=== PATIENT | female | born 2000 | race Caucasian/White ===

== ENCOUNTER 2022-06-08 19:51 | Emergency (ER) | payer BC, OTHER ==
[~2022-06-08] VITALS: Ht 154.9 cm; Wt 74.8 kg
[2022-06-08 20:15] VITALS: BP_SYST 126
--- NOTE | 2022-06-08 20:15 | NUR ---
Patient to ER bed 02 to gown for evaluation. Side rails up. Report given to EMILEE DOTSON
--- NOTE | 2022-06-08 20:20 | NUR ---
PATIENT BROUGHT IN BY BOYFRIEND COMPLAINING OF RLQ ABDOMINAL DULL NON RADIATING PAIN X 2 DAYS WITH NAUSEA. DENIES DIARRHEA , CONSTIPATION OR VOMITING. AFEBRILE. PAIN 5/10
[2022-06-08] MEDS ORDERED: IBUPROFEN 600 MG TABLET PO ONE (20:30)
[2022-06-08] MEDS ORDERED: ACETAMINOPHEN 500 MG TABLET PO ONE (20:30)
[2022-06-08] MEDS ORDERED: ONDANSETRON 4 MG ODT TAB PO ONE (20:30)
[2022-06-08 20:50] LABS: BASOPHILS % (AUTO) 0.8 % (0.0-2.0); EOSINOPHILS # (AUTO) 0.2 K/uL (0.0-0.4); EOSINOPHILS % (AUTO) 2.7 % (0.0-4.0); HEMATOCRIT 39.2 % (36-48); HEMOGLOBIN 12.7 g/dL (12.0-16.0); LYMPHOCYTES # (AUTO) 2.5 K/uL (1.0-5.5); LYMPHOCYTES % (AUTO) 44.3 % (20.5-51.5); MEAN CORPUSCULAR HEMOGLOBIN 26 pg (27-31); MEAN CORPUSCULAR HGB CONC 32 % (32-36); MEAN CORPUSCULAR VOLUME 81 fL (79.0-98.0); MONOCYTES # (AUTO) 0.4 K/uL (0.0-1.0); NEUTROPHILS # (AUTO) 2.6 K/uL (1.8-7.7); NEUTROPHILS % (AUTO) 45.2 % (40.0-70.0); PLATELET COUNT (AUTO) 189 K/uL (130-430); RED BLOOD CELL COUNT(AUTO) 4.84 MIL/uL (4.2-6.2); RED CELL DISTRIBUTION WIDTH 13.8 % (9.0-15.0); WHITE BLOOD COUNT (AUTO) 5.7 K/uL (4.5-11.0)
[2022-06-08 21:01] LABS: ALANINE AMINOTRANSFERASE 35 U/L (12-78); ALBUMIN 3.4 g/dL (3.4-4.8); ANION GAP 6 (5-15); ASPARTATE AMINOTRANSFERASE 25 U/L (10-37); CALCIUM 8.6 mg/dL (8.4-11.0); CHLORIDE 105 mmol/L (98-107); CREATININE 0.82 mg/dL (0.55-1.30); GFR AFRICAN AMERICAN 115 mL/min (>90); GLUCOSE 101 mg/dL (70-99); LIPASE 64 U/L (73-393); TOTAL BILIRUBIN 0.2 mg/dL (0.0-1.0); UREA NITROGEN, BLOOD 13 mg/dL (8-21)
[2022-06-08 21:17] LABS: C-REACTIVE PROTEIN QUANT < 0.2 mg/dL (0-0.5)
[2022-06-08] MEDS ORDERED: ONDA-8 TL (22:53)
--- NOTE | 2022-06-08 22:56 | NUR ---
urine walked down to lab
[2022-06-08 22:57] VITALS: BP_SYST 125
[2022-06-08 23:44] LABS: BILIRUBIN,URINE NEGATIVE (NEGATIVE); BLOOD, URINE NEGATIVE (NEGATIVE); COLOR,URINE YELLOW (YELLOW); GLUCOSE,URINE NEGATIVE (NEGATIVE); KETONES,URINE NEGATIVE (NEGATIVE); LEUKOCYTE ESTERASE ,URINE TRACE (NEGATIVE); NITRITE, URINE NEGATIVE (NEGATIVE); PROTEIN URINE NEGATIVE (NEGATIVE); UROBILINOGEN,URINE 0.2 (0.2-1.0)
[2022-06-08 23:55] LABS: BACTERIA,URINE FEW /HPF (None Seen); CLARITY/URINE HAZY (CLEAR); RBC,URINE 0-3 /HPF (0-3)
== END 2022-06-08 23:09 | disposition home or self-care (01) ==
LOC: SED 19:51
DX: R10.31 Right lower quadrant pain (principal); R11.0 Nausea; Z79.899 Other long term (current) drug therapy
CPT/HCPCS: 99284; 76856; 80053; 81000; 83690; 85025; 86140; 87086; 36415; 81025; Q0162

== ENCOUNTER 2022-06-10 23:12 | Emergency (ER) | payer BC ==
[~2022-06-10] VITALS: Ht 154.9 cm; Wt 77.1 kg
[~2022-06-10 23:12] MED LIST: ONDA-8 TL
--- NOTE | 2022-06-10 23:15 | NUR ---
Triaged and placed patient to ER bed 3 for evaluation. Report given to Jaime HEBERT for continuity of care. Bed placed in lowest position with side rails up. Instructed to notify ED staff for any changes in condition or worsening of symptoms while waiting to be seen by a provider. Patient verbalized understanding.
[2022-06-10 23:16] VITALS: BP_SYST 120
--- NOTE | 2022-06-10 23:44 | NUR ---
PREGNACY URINE NEGATIVE
[2022-06-10] MEDS ORDERED: ONDANSETRON HCL 4 MG/2 ML VIAL IVP ONE (23:45)
[2022-06-10] MEDS ORDERED: NACL 0.9% 1,000 ML IV ONE (23:45)
[2022-06-10] MEDS ORDERED: KETOROLAC TROMETHAMINE 30 MG VIAL IVP ONE (23:45)
[2022-06-10 23:51] LABS: BILIRUBIN,URINE NEGATIVE (NEGATIVE); BLOOD, URINE NEGATIVE (NEGATIVE); CLARITY/URINE SL CLOUDY (CLEAR); COLOR,URINE YELLOW (YELLOW); GLUCOSE,URINE NEGATIVE (NEGATIVE); KETONES,URINE NEGATIVE (NEGATIVE); LEUKOCYTE ESTERASE ,URINE NEGATIVE (NEGATIVE); NITRITE, URINE NEGATIVE (NEGATIVE); PH,URINE 5.5 (5.0-8.0); PROTEIN URINE NEGATIVE (NEGATIVE); UROBILINOGEN,URINE 0.2 (0.2-1.0)
[2022-06-11 00:44] LABS: BASOPHILS % (AUTO) 0.7 % (0.0-2.0); EOSINOPHILS # (AUTO) 0.1 K/uL (0.0-0.4); EOSINOPHILS % (AUTO) 1.9 % (0.0-4.0); HEMATOCRIT 38.9 % (36-48); HEMOGLOBIN 12.7 g/dL (12.0-16.0); LYMPHOCYTES # (AUTO) 3.2 K/uL (1.0-5.5); LYMPHOCYTES % (AUTO) 47.9 % (20.5-51.5); MEAN CORPUSCULAR HEMOGLOBIN 26 pg (27-31); MEAN CORPUSCULAR HGB CONC 33 % (32-36); MEAN CORPUSCULAR VOLUME 80 fL (79.0-98.0); MONOCYTES # (AUTO) 0.4 K/uL (0.0-1.0); NEUTROPHILS # (AUTO) 2.9 K/uL (1.8-7.7); NEUTROPHILS % (AUTO) 43.5 % (40.0-70.0); PLATELET COUNT (AUTO) 198 K/uL (130-430); RED BLOOD CELL COUNT(AUTO) 4.84 MIL/uL (4.2-6.2); RED CELL DISTRIBUTION WIDTH 13.5 % (9.0-15.0); WHITE BLOOD COUNT (AUTO) 6.6 K/uL (4.5-11.0)
[2022-06-11 00:58] LABS: CREATININE 0.82 mg/dL (0.55-1.30); TOTAL BILIRUBIN 0.2 mg/dL (0.0-1.0)
[2022-06-11] MEDS ORDERED: CIPR500T5 PO (01:05)
[2022-06-11] MEDS ORDERED: IBUP-1971 PO (01:05)
[2022-06-11] MEDS ORDERED: ONDA8TAB60 PO (01:05)
[2022-06-11 01:13] VITALS: BP_SYST 124
--- NOTE | 2022-06-11 01:18 | NUR ---
MD AT BEDSIDE TO DISCUSS FINDINGS AND DISCHARGE PLANS
--- NOTE | 2022-06-11 01:18 | NUR ---
Patient given written and verbal discharge instructions and verbalizes understanding. ER MD discussed with patient the results and treatment provided. Patient in stable condition. ID arm band removed. IV catheter removed intact and dressing applied, no active bleeding. Rx of CIPRO, IBUPRPHEN AND ZOFRAN given. Patient educated on pain management and to follow up with PMD. Pain Scale . Opportunity for questions provided and answered. Medication side effect fact sheet provided.
== END 2022-06-11 01:14 | disposition home or self-care (01) ==
LOC: SED 23:12
DX: N39.0 Urinary tract infection, site not specified (principal); R10.31 Right lower quadrant pain; R11.0 Nausea; Z79.899 Other long term (current) drug therapy
CPT/HCPCS: 99285; 74176; 80053; 83690; 85025; 36415; 76376; 81003; 96374; 96361; 96375; J1885; J2405; J7030